=== PATIENT | male | born 1975 ===

== ENCOUNTER 2017-10-28 02:17 | Emergency (ER) | payer OTHER ==
[2017-10-28 02:32] VITALS: O2SAT 95
[2017-10-28] MEDS ORDERED: Tdap Vaccine 0.5 ml Vial (10-64 yrs) IM ONE ×2 (02:37→02:44)
--- NOTE | 2017-10-28 02:42 | C.PDOC ---
History Of Present Illness 42 y/o male presents to the ED after a fall. Patient was drinking today when he lost his balance and fell. He denies LOC. PMD: none provided - HPI Time Seen by Provider: 10/28/17 02:33 Chief Complaint (Nursing): Trauma History Per: Patient History/Exam Limitations: intoxication Onset/Duration Of Symptoms: Hrs Location Of Injury: Right: Face - Fall Fall:Prior To Injury: Other (EtOH intoxication) Past Medical History Vital Signs: Last Vital Signs Temp 97.6 F 10/28/17 05:39 Pulse 87 10/28/17 05:39 Resp 18 10/28/17 05:39 BP 136/76 10/28/17 05:39 Pulse Ox 95 10/28/17 05:39 - Medical History PMH: No Chronic Diseases Surgical History: No Surg Hx Family History: States: No Known Family Hx - Social History Hx Alcohol Use: Yes Hx Substance Use: No - Immunization History Hx Tetanus Toxoid Vaccination: Yes Hx Influenza Vaccination: Yes Hx Pneumococcal Vaccination: No Review Of Systems Except As Marked, All Systems Reviewed And Found Negative. Constitutional: Positive for: Other (EtOH intoxication) Skin: Positive for: Other (facial abrasions to the right side and forehead with swelling) Neurological: Negative for: Other (LOC) Physical Exam - Physical Exam Appears: Well, No Acute Distress Skin: Other (swelling and abrasions to forehead and right side of face) Head: Atraumatic, Normacephalic Eye(s): bilateral: Normal Inspection, PERRL, EOMI Nose: Normal Throat: Normal Neck: Normal Cardiovascular: Rhythm Regular, No Murmur Respiratory: Normal Breath Sounds, No Decreased Breath Sounds Gastrointestinal/Abdominal: Normal Exam Back: Normal Inspection, No CVA Tenderness, No Vertebral Tenderness Extremity: Normal ROM, No Pedal Edema Neurological/Psych: Oriented x3 ED Course And Treatment O2 Sat by Pulse Oximetry: 95 (RA) Pulse Ox Interpretation: Normal Medical Decision Making Medical Decision Making: laceration well approx. head ct neg. no sutures requrired. pt seen ambulaing steady gait clinically sober. advise outpt fu and return precautions Disposition - Disposition Disposition: HOME/ ROUTINE Disposition Time: 06:00 Condition: GOOD Additional Instructions: return to er with worsening symptoms or concerns. Instructions: Closed Head Injury, Alcohol Abuse and Alcoholism (DC) Forms: [employer] ([place]) - Clinical Impression Clinical Impression: Head injury, Alcohol abuse
--- NOTE | 2017-10-28 04:06 | CT ---
EXAM: CT Head Without Intravenous Contrast CLINICAL HISTORY: 42 years old, male; Pain; Headache; Additional info: Trauma TECHNIQUE: Axial computed tomography images of the head/brain without intravenous contrast. All CT scans at this facility use one or more dose reduction techniques, viz.: automated exposure control; ma/kV adjustment per patient size (including targeted exams where dose is matched to indication; i.e. head); or iterative reconstruction technique. Coronal and sagittal reformatted images were created and reviewed. COMPARISON: No relevant prior studies available. FINDINGS: Brain: No intracranial hemorrhage. No mass. No edema. Ventricles: No hydrocephalus. Bones/joints: No calvarial fracture. Soft tissues: RIGHT frontal soft tissue swelling. Small calcification or foreign body along right frontal soft tissue swelling. Mastoid air cells: No mastoid effusion. IMPRESSION: 1. No intracranial hemorrhage. 2. See facial bone CT report for additional details.
--- NOTE | 2017-10-28 04:08 | CT ---
EXAM: CT Maxillofacial Without Intravenous Contrast CLINICAL HISTORY: 42 years old, male; Pain; Eye pain and face pain; Right; Additional info: Trauma. Open forehead upper right eyes TECHNIQUE: Axial computed tomography images of the face without intravenous contrast. All CT scans at this facility use one or more dose reduction techniques, viz.: automated exposure control; ma/kV adjustment per patient size (including targeted exams where dose is matched to indication; i.e. head); or iterative reconstruction technique. Coronal and sagittal reformatted images were created and reviewed. COMPARISON: No relevant prior studies available. FINDINGS: Bones/joints: No acute fracture. Soft tissues: Mild facial soft tissue swelling. Orbits: Unremarkable as visualized. Sinuses: Scattered minimal to mild mucosal thickening. No air-fluid levels. IMPRESSION: 1. No fracture. 2. Incidental/non-acute findings are described above.
[2017-10-28 05:43] VITALS: BP 136/76; PULSE 87; RESP 18; TEMP 97.6
[2017-10-28] MEDS ORDERED: Bacitracin 500 Units/gm Oint Foilpak UD TOP ONE (05:43)
[2017-10-28] MEDS ORDERED: Bacitracin 500 Units/gm Oint Foilpak UD ONE (05:47)
== END 2017-10-28 05:52 | disposition home or self-care (01) ==
LOC: C.ER 02:17
DX: S09.90XA Unspecified injury of head, initial encounter (principal); W01.0XXA Fall on same level from slipping, tripping and stumbling without subsequent striking against object, initial encounter; F10.129 Alcohol abuse with intoxication, unspecified; Z23 Encounter for immunization